=== PATIENT | female | born 1955 | race Caucasian/White ===

== ENCOUNTER → 2020-12-23 | Outpatient (CLI) | payer OTHER | LOC: LAB 11:19 | PROVIDERS: ATTEND Internal Medicine | DX: Z20.822 Contact with and (suspected) exposure to COVID-19 (principal) ==

== ENCOUNTER → 2020-12-28 | Outpatient (CLI) | payer OTHER ==
--- NOTE | 2020-12-30 17:31 | PFR/MVV ---
[facility] [place] [address] PULMONARY FUNCTION MVV/REPORT Name: BENNETT ROCHA [place] Room #: REG [facility].#: [id number] Admission: 12/28/20 Attend Phys: Josiah Dahl MD Discharge: Date of : 55 Report #: [id number] THIS REPORT FOR: //name// COPIES FOR: AGE: 65 SEX/RACE: F/C >> SPIROMETRY: (BTPS) Height: 65 in cm Weight: 155 lbs kg Exam Date: 12/28/20 PRE-RX POST-RX PRED BEST %PRED BEST %PRED %CHG FVC LITERS . 3.06 . 2.76 . 90 . 2.67 . 87 . -3 FEV1 LITERS . 2.23 . 2.41 . 108 . 2.34 . 105 . -3 FEV1/FVC % . 72 . 87 . 120 . 88 . 121 . 1 [id number]% L/Sec . 2.50 . 4.28 . 171 . 4.22 . 169 . -1 PEF L/SEC . 5.73 . 82673 . 135 . 6.32 . 110 . -19 FEF50/FIF50 UNITLESS . <1.00 . 1.51 . . 1.87 . . 23 MVV L/Min . 88 . . f 1/Min . . . >> LUNG VOLUMES: (BTPS) PRE-RX POST-RX PRED AVG %PRED AVG %PRED %CHG VC Liters . 3.06 . 3.24 . 106 . . . TLC Liters . 5.06 . 3.49 . 69 . . . RV Liters . 1.97 . 0.25 . 13 . . . RV/TLC % . 39 . 7 . 18 . . . FRC PL Liters . 2.84 . 0.82 . 29 . . . FRC N2 Liters . 2.84 . . . . . ERV Liters . 1.03 . 0.57 . 56 . . . IC Liters . 2.05 . 2.67 . 130 . . . >> DIFFUSION: DLCO ml/Min/mmHg . 20.4 . 11.9 . 58 . . . DL [place] ml/Min/mmHg . 20.4 . 11.9 . 58 . . . DLCO/VA ml/Min/mmHg . 3.68 . 3.79 . 103 . . . VA Liters . . 3.12 . . . . [facility] [address] [place] [address] PULMONARY FUNCTION MVV/REPORT Name: BENNETT ROCHA Room #: REG [facility] Honey#: [id number] Admission: 12/28/20 Attend Phys: Josiah Dahl MD Discharge: Date of : 55 Report #: [id number] COMMENTS: COMMENTS: >> RESISTANCE: PRE-RX PRED AVG %PRED Raw Total cmH20/L/Sec . . 1.84 . Raw Insp cmH20/L/Sec . . 0.70 . Raw Exp cmH20/L/Sec . . 2.27 . Raw cmH20/L/Sec . 1.34 . 1.43 . 106 Gaw L/Sec/cmH20 . 0.682 . 0.701 . 103 sRaw cmH20 Sec . 3.81 . 2.75 . 72 sGaw l/cmH20 Sec . 0.262 . 0.63 . 138 Vtq Liters . . 1.93 . # = OUTSIDE 95% CONFIDENCE INTERVAL CALIBRATION: PRED: 3.00 ACTUAL: EXP 3.01 INSP 3.02 [facility]-06 [facility]-05 [id number] >> INTERPRETATION/IMPRESSION: Spirometric examination showed normal flows. There was no significant bronchodilator response. Lung volumes are decreased with a total lung capacity measuring 69% of predicted. Diffusion capacity is mildly reduced, measuring 58% of predicted, however, normal when corrected for alveolar volume. Flow volume loop is normal. IMPRESSION: Probable normal pulmonary function. Lung volumes are mildly decreased, along with decreased diffusion capacity. Clinical correlation is recommended. <ELECTRONICALLY SIGNED> By: Karson Valentin MD 12/30/20 1731 Karson Valentin MD /nt
== END ==
LOC: PUL 08:50
PROVIDERS: ATTEND Internal Medicine
DX: R06.00 Dyspnea, unspecified (principal)